=== PATIENT | male | born 1965 | race African-American/Black ===

== ENCOUNTER 2016-08-16 09:51 | Outpatient (CLI) | payer MEDICARE, OTHER ==
--- NOTE | 2016-08-16 11:17 | RAD ---
TWO VIEWS LUMBAR SPINE: HISTORY: Back pain. FINDINGS: AP and lateral views lumbar spine obtained. An inferior vena cava filter is in place. Abdominal ga s pattern is nonspecific. Small anterior osteophyte seen at L4-5. No significant evidence of fractures or bony lesions seen. No significant evidence of disk space height loss seen. IMPRESSION: Mild L4-5 changes of spondylosis. POS: [facility]
--- NOTE | 2016-08-16 11:19 | RAD ---
3 VIEWS THORACIC SPINE: Date: 08/16/16 HISTORY: Back pain. No history of trauma. FINDINGS: AP, lateral, and coned-down views of thoracic spine obtained. Thoracic spine is unremarkable. No evidence of thoracic spine fractures, subluxations, or bony lesio ns seen. IMPRESSION: Normal 3 views thoracic spine. POS: [facility]
== END 2016-08-16 09:52 | disposition home or self-care (01) ==
LOC: NAV RAD 09:51
PROVIDERS: ATTEND Internal Medicine
DX: M54.5 Low back pain (principal); M47.816 Spondylosis without myelopathy or radiculopathy, lumbar region
CPT/HCPCS: 72072; 72100

== ENCOUNTER 2016-08-19 11:58 | Outpatient (CLI) | payer MEDICARE, OTHER ==
[2016-08-19 12:50] LABS: Bilirubin Negative (Negative); Blood, Urine Negative (Negative); Clarity Clear (Clear); Glucose, Urine (Dipstick) Negative (Negative); Leukocyte Negative (Negative); Nitrite Negative (Negative); Protein, Urine (Dipstick) Negative (Neg-Trace); Urobilinogen 0.2 mg/dL (0.2-1.0); pH, Urine 5.5 (5.0-9.0)
[2016-08-19 13:34] LABS: #Basophils 0.1 thou/uL (0.0-0.2); #Eosinphils 0.1 thou/uL (0.0-0.7); #Monocytes 0.7 thou/uL (0.11-0.59); %Basophils 1.8 % (0.0-1.0); %Eosinophils 0.9 % (0.0-10.0); %Lymphocytes 35.1 % (21.0-51.0); %Monocytes 11.3 % (0.0-10.0); %Neutrophils 50.9 % (42.0-75.0); Hemoglobin 16.6 g/dL (14.0-18.0); Mean Corpuscular HGB CONC 34.3 g/dL (32.0-36.0); Mean Corpuscular Hemoglobin 32.7 pg (27.0-31.0); Mean Corpuscular Volume 95.2 fl (80.0-94.0); Mean Platelet Volume 9.7 fL (7.4-10.4); Platelet Count 162 thou/uL (130-400); RBC Distribution Width 11.6 % (11.5-14.5); Red Blood Cell (RBC) Count 5.09 mill/uL (4.70-6.10); White Blood Cell (WBC) Count 5.8 thou/uL (4.8-10.8)
[2016-08-19 13:35] LABS: Bacteria/HPF None Seen HPF (None Seen); RBC/HPF None Seen HPF (0-3); Squamous Epithelial 0-3 HPF (0-3); WBC/HPF 0-3 HPF (0-3)
[2016-08-19 13:45] LABS: ALT (SGPT) 27 U/L (0-55); AST (SGOT) 31 U/L (5-34); Albumin 4.3 g/dL (3.5-5.0); Alkaline Phosphatase 75 U/L (40-150); Anion Gap 16 mmol/L (10-20); BUN (Urea Nitrogen) 13 mg/dL (8.4-25.7); Bilirubin, Total 0.4 mg/dL (0.2-1.2); Calc. Creatinine Clearance 0 mL/min (70-130); Calcium 9.7 mg/dL (7.8-10.44); Carbon Dioxide 25 mmol/L (22-29); Cardiac Risk 3.6 (Less than 4.5); Chloride 102 mmol/L (98-107); Cholesterol 178 mg/dL (< 200 Desired); Estimated GFR-MDRD Greater than 90; Globulin 3.1 g/dL (2.4-3.5); Glucose 89 mg/dL (70-105); HDL Cholesterol 50 mg/dL (>60 Neg Risk); LDL Cholesterol, Calculated 83 mg/dL; Potassium 4.4 mmol/L (3.5-5.1); Protein, Total 7.4 g/dL (6.0-8.3); Sodium 139 mmol/L (136-145); Triglycerides 223 mg/dL (Less than 150)
== END 2016-08-19 11:59 ==
LOC: NAVSJIPCSP 11:58
PROVIDERS: ATTEND Internal Medicine
DX: Z12.5 Encounter for screening for malignant neoplasm of prostate (principal); Z12.11 Encounter for screening for malignant neoplasm of colon; M54.5 Low back pain; Z79.899 Other long term (current) drug therapy
CPT/HCPCS: 36415; 80053; 80061; 81001; 85025; G0103

== ENCOUNTER 2016-08-21 10:27 | Emergency (ER) | payer MEDICARE, OTHER | END 2016-08-21 10:52 | disposition home or self-care (01) | LOC: NAV ERS 10:27 | DX: R10.13 Epigastric pain (principal); R10.12 Left upper quadrant pain; F31.9 Bipolar disorder, unspecified; F20.9 Schizophrenia, unspecified | CPT/HCPCS: 82274; 99283 ==

== ENCOUNTER 2016-08-21 10:59 | Outpatient (CLI) | payer MEDICARE, OTHER | END 2016-08-21 11:00 | disposition home or self-care (01) | LOC: NAVSJIPCSP 10:59 | PROVIDERS: ATTEND Internal Medicine | DX: Z12.11 Encounter for screening for malignant neoplasm of colon (principal); Z12.5 Encounter for screening for malignant neoplasm of prostate; M54.5 Low back pain | CPT/HCPCS: 82274 ==

== ENCOUNTER 2016-10-19 08:35 | Emergency (ER) | payer MEDICARE, OTHER | END 2016-10-19 09:09 | disposition home or self-care (01) | LOC: NAV ERS 08:35 | DX: K29.00 Acute gastritis without bleeding (principal); F31.9 Bipolar disorder, unspecified; K21.9 Gastro-esophageal reflux disease without esophagitis; Z79.899 Other long term (current) drug therapy | CPT/HCPCS: 99283 ==